=== PATIENT | female | born 1940 | race Caucasian/White ===

== ENCOUNTER 2016-07-15 14:04 | Emergency (ER) | payer MEDICARE, OTHER ==
[2016-07-15] MEDS ORDERED: ONDANSETRON HCL 4 MG/2 ML SOL IV ONE (15:30)
[2016-07-15] MEDS ORDERED: PANTOPRAZOLE SODIUM 40 MG/10 ML PDS IV ONE (15:40)
[2016-07-15] MEDS ORDERED: PANTOPRAZOLE SODIUM 40 MG/10 ML PDS ONE (15:49)
[2016-07-15] MEDS ORDERED: ONDANSETRON HCL 4 MG/2 ML SOL ONE (15:49)
[2016-07-15 15:52] LABS: HEMATOCRIT 44 % (35-47); MEAN CORPUSCULAR HGB CONC 29.3 gm/dl (32.0-36.0)
[2016-07-15 15:53] LABS: MEAN CORPUSCULAR VOLUME 73 fL (81-99)
[2016-07-15 16:09] LABS: ALBUMIN 2.9 gm/dl (3.4-5.0); ALT 24 IU/L (14-63); CALCIUM 10.2 mg/dl (8.5-10.1); GLOM FILT RATE 28 mL/min (>60); SODIUM 140 mMol/L (136-145)
[2016-07-15 16:24] LABS: ANISOCYTOSIS SLIGHT AMT; BASOPHILS % (MANUAL) 0 % (0-3); EOSINOPHILS % (MANUAL) 0 % (0-9); HYPOCHROMASIA SLIGHT AMT; LYMPHOCYTES % (MANUAL) 8 % (10-50); OVALOCYTES PRESENT
[2016-07-15] MEDS ORDERED: LORAZEPAM 2 MG/ML SOL IV ONE (18:12)
[2016-07-15] MEDS ORDERED: LORAZEPAM 2 MG/ML SOL ONE (18:14)
[2016-07-15] MEDS ORDERED: SODIUM CHLORIDE 0.9% 1000ML 1,000 ML IV ONE (18:40)
[2016-07-15 18:51] VITALS: RESP 24; TEMP 97.7
[2016-07-15] MEDS ORDERED: ERTAPENEM SODIUM 1 GM PDS ONE (19:15)
[2016-07-15 19:36] LABS: APPEARANCE,URINE Slightly Cloudy; BILIRUBIN,URINE 1+ (NEGATIVE); COLOR,URINE Dark yellow; GLUCOSE, URINE (UA) NEGATIVE (NEGATIVE); KETONES,URINE TRACE (NEGATIVE); LEUKOCYTE ESTERASE ,URINE NEGATIVE (NEGATIVE); NITRATE,URINE NEGATIVE (NEGATIVE); OCCULT BLOOD,URINE NEGATIVE (NEG-TRACE); UROBILINOGEN,URINE 0.2 (0.2-1.0 EU)
[2016-07-15 20:01] VITALS: BP 129/74; PULSE 108; O2SAT 93
[2016-07-15 20:05] LABS: ICTOTEST,URINE NEGATIVE (NEGATIVE); RBC,URINE 0-2 (0-3AV/HPF); WBC,URINE 0-2 (0-5AV/HPF)
[2016-07-16] MEDS ORDERED: ERTAPENEM SODIUM 1 GM PDS 1 GM in SODIUM CHLORIDE 0.9% 50 ML 50 ML IV SCH (09:00)
== END 2016-07-15 20:23 | disposition short-term general hospital (02) | DRG 393 ==
LOC: ED 14:04
DX: K63.1 Perforation of intestine (nontraumatic) (principal); K65.9 Peritonitis, unspecified; K63.9 Disease of intestine, unspecified
CPT/HCPCS: 36415; 74176; 80053; 81001; 82150; 84484; 85007; 85027; 85610; 87040; 93005; 99291; J1335; J2060; J2405